=== PATIENT | female | born 1970 | race Caucasian/White ===

== ENCOUNTER 2018-09-30 15:59 | Emergency (ER) | payer MEDICARE ==
[~2018-09-30] VITALS: Ht 165.1 cm; Wt 81.0 kg
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
[2018-09-30] MEDS ORDERED: FAMOTIDINE 20 MG TABLET ONE (16:55)
[2018-09-30] MEDS ORDERED: CEPHALEXIN 500 MG CAPSULE ONE (16:55)
[2018-09-30] MEDS ORDERED: SULFAMETH./TRIMETHOPRIM DS 800MG/160MG TABLET ONE (16:55)
[2018-09-30] MEDS ORDERED: DIPHENHYDRAMINE 50 MG CAPSULE ONE (16:55)
[2018-09-30] MEDS ORDERED: LIDOCAINE-MPF 1%, 5ML ONE (16:56)
[2018-09-30] MEDS ORDERED: LIDOCAINE-MPF 1%, 5ML INFIL ONE (17:00)
[2018-09-30] MEDS ORDERED: DIPHENHYDRAMINE 25 MG CAPSULE PO ONE (17:00)
[2018-09-30] MEDS ORDERED: SULFAMETH./TRIMETHOPRIM DS 800MG/160MG TABLET PO ONE (17:00)
[2018-09-30] MEDS ORDERED: FAMOTIDINE 20 MG TABLET PO ONE (17:00)
[2018-09-30] MEDS ORDERED: CEPHALEXIN 500 MG CAPSULE PO ONE (17:00)
[2018-09-30] MEDS ORDERED: OXYcodone/APAP 5/325MG TABLET ONE (17:24)
[2018-09-30] MEDS ORDERED: ONDANSETRON ODT 4 MG ONE (17:24)
--- NOTE | 2018-09-30 17:27 | NUR ---
PT RESTING ON CHRISTIANO, MEDICATED PER MD ORDER. NAD
[2018-09-30] MEDS ORDERED: ONDANSETRON ODT 4 MG PO ONE (17:30)
[2018-09-30] MEDS ORDERED: OXYcodone/APAP 5/325MG TABLET PO ONE (18:00)
--- NOTE | 2018-09-30 18:30 | NUR ---
PT RESTING ON GURNEY, SIG OTHER AT BEDSIDE. PT GIVEN WARM BLANKET FOR COMFORT. NAD NOTED, NO OTHER NEEDS AT THIS TIME
--- NOTE | 2018-09-30 18:52 | NUR ---
REPORT TO FANTA KASPER
[2018-09-30 19:10] VITALS: BP 137/82
[2018-10-01] MEDS ORDERED: SULF1TAB23 PO (20:51)
[2018-10-01] MEDS ORDERED: OXYC5CAP2 PO (20:51)
[2018-10-01] MEDS ORDERED: CEPH-368 PO (20:51)
[2018-10-01] MEDS ORDERED: PRED20TA PO (20:51)
== END 2018-09-30 19:17 | disposition home or self-care (01) ==
LOC: ED 19:05
DX: L02.811 Cutaneous abscess of head [any part, except face] (principal); S00.06XA Insect bite (nonvenomous) of scalp, initial encounter; W57.XXXA Bitten or stung by nonvenomous insect and other nonvenomous arthropods, initial encounter; Y93.89 Activity, other specified; Y92.89 Other specified places as the place of occurrence of the external cause; Y99.8 Other external cause status
CPT/HCPCS: 10060; 99284; J7512; Q0162; Q0163

== ENCOUNTER 2018-10-01 20:28 | Emergency (ER) | payer MEDICARE ==
[~2018-10-01] VITALS: Ht 160 cm; Wt 82.9 kg
[2018-10-01] MEDS ORDERED: CEPH-368 PO (20:51)
[2018-10-01] MEDS ORDERED: OXYC5CAP2 PO (20:51)
[2018-10-01] MEDS ORDERED: PRED20TA PO (20:51)
[2018-10-01] MEDS ORDERED: SULF1TAB23 PO (20:51)
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
--- NOTE | 2018-10-01 21:23 | NUR ---
PT RESTING IN ROOM. VSS. WARM BLANKET PROVIDED FOR COMFORT. NO OTHER REQUESTS AT THIS TIME. AWAITING EDMD ASSESSMENT.
[2018-10-01] MEDS ORDERED: MORPHINE SULFATE 4 MG/ML, 1ML ONE (21:51)
[2018-10-01] MEDS ORDERED: ONDANSETRON 2MG/ML, 2ML ONE (21:51)
--- NOTE | 2018-10-01 21:56 | NUR ---
PT MEDICATED PER MAR. VSS. NO NEEDS EXPRESSED. CALL LIGHT WITHIN REACH.
[2018-10-01] MEDS ORDERED: SODIUM CHLORIDE FLUSH 10ML SYR IVF ONE (22:00)
[2018-10-01] MEDS ORDERED: ONDANSETRON 2MG/ML, 2ML IVPush ONE (22:00)
[2018-10-01] MEDS ORDERED: MORPHINE SULFATE 4 MG/ML, 1ML IVPush PRN (22:00)
--- NOTE | 2018-10-01 22:10 | NUR ---
SBAR RPT REC'D AND PT CARE ASSUMED. PT MOVED TO ROOM 40. VSS, PAIN IMPROVED. CALL LIGHT W/I REACH.
[2018-10-01 22:32] VITALS: BP 101/47
--- NOTE | 2018-10-01 22:33 | NUR ---
DR MADRID AT BEDSIDE, POC AND D/C INSTRUCTIONS REVIEWED, QUESTIONS ANSWERED.
--- NOTE | 2018-10-01 22:59 | NUR ---
Patient/Caregiver given discharge instructions and they have confirmed that they understand the instructions. Patient ambulatory with steady gait. PT VERBALIZES UNDERSTANDING TO RTN IN 24-48 HRS TO HAVE PACKING REMOVED
== END 2018-10-01 23:00 | disposition home or self-care (01) ==
LOC: ED 22:51
DX: L02.811 Cutaneous abscess of head [any part, except face] (principal); R51 Headache
CPT/HCPCS: 96374; 96375; 99283; J2270; J2405

== ENCOUNTER 2018-10-04 10:25 | Emergency (ER) | payer MEDICARE ==
[~2018-10-04] VITALS: Ht 165.1 cm; Wt 82.0 kg
[~2018-10-04 10:25] MED LIST: CEPH-368 PO; OXYC5CAP2 PO; PRED20TA PO; SULF1TAB23 PO
[2018-10-04 10:33] VITALS: BP 117/78
[2018-10-04] MEDS ORDERED: ONDANSETRON ODT 4 MG ONE (10:53)
--- NOTE | 2018-10-04 10:58 | NUR ---
REPORT RECEIVED FROM MAJO MIRANDA. ASSUMED CARE OF PT.
[2018-10-04] MEDS ORDERED: ONDANSETRON ODT 4 MG PO ONE (11:00)
[2018-10-04 11:15] LABS: BASOPHILS # (AUTO) 0.04 x10^3/uL (0-0.1); BASOPHILS % (AUTO) 0 % (0-1); EOSINOPHILS # (AUTO) 0.11 x10^3/uL (0-0.4); EOSINOPHILS % (AUTO) 1 % (1-7); LYMPHOCYTES # (AUTO) 2.84 x10^3/uL (1-3.4); LYMPHOCYTES % (AUTO) 26 % (22-44); MD NO; MEAN CORPUSCULAR HEMOGLOBIN 27.4 pg (27.0-34.8); MEAN CORPUSCULAR HGB CONC 32.1 g/dL (32.4-35.8); MEAN CORPUSCULAR VOLUME 85.2 fL (80-100); MONOCYTES # (AUTO) 0.63 x10^3/uL (0.2-0.8); MONOCYTES % (AUTO) 6 % (2-9); NEUTROPHILS # (AUTO) 7.42 x10^3/uL (1.8-6.8); NEUTROPHILS % (AUTO) 67 % (42-75); PLATELET COUNT 437 x10^3/uL (130-400); RED BLOOD COUNT 4.45 x10^6/uL (3.82-5.3); RED CELL DISTRIBUTION WIDTH 16.4 % (9.6-15.2)
[2018-10-04 11:28] LABS: ANION GAP 6 mmol/L (5-15); CALCIUM 8.3 mg/dL (8.5-10.1); CHLORIDE 107 mmol/L (98-107); CREATININE 0.72 mg/dL (0.55-1.02)
== END 2018-10-04 11:54 | disposition home or self-care (01) ==
LOC: ED 10:43
DX: R42 Dizziness and giddiness (principal); E87.6 Hypokalemia; Z48.01 Encounter for change or removal of surgical wound dressing
CPT/HCPCS: 36415; 80048; 82040; 85025; 93005; 99284; Q0162

== ENCOUNTER 2018-10-07 15:06 | Emergency (ER) | payer MEDICARE, MEDICAID ==
[~2018-10-07] VITALS: Ht 162.6 cm; Wt 82.0 kg
[2018-10-07 15:20] VITALS: BP 129/70
--- NOTE | 2018-10-07 15:26 | NUR ---
NIL WHEN CALLED FOR ROOM
--- NOTE | 2018-10-07 16:08 | NUR ---
DC EDUCATION PROVIDED, PT DEMONSTRATES UNDERSTANDING. PT AMBULATED STEADILY TO DC WITH RN
== END 2018-10-07 16:11 | disposition home or self-care (01) ==
LOC: ED 15:45
DX: L02.811 Cutaneous abscess of head [any part, except face] (principal)
CPT/HCPCS: 99281